=== PATIENT | male | born 1965 | race Caucasian/White ===

== ENCOUNTER 2018-12-11 07:32 | Emergency (ER) | payer BC, OTHER ==
[2018-12-11 08:19] LABS: ABS Eosinophils 0.1 10^3/ul (0-0.6); ABS Lymphocytes 0.8 10^3/ul (1.0-4.8); ABS Monocytes 0.4 10^3/ul (0-0.8); ABS Neutrophils 5.6 10^3/ul (1.5-7.7); Eosinophil % 1.1 %; Hematocrit 40 % (42-52); Hemoglobin 13.8 g/dL (14.0-18.0); Lymphocyte % 11.2 %; Mean Corpuscular HGB Conc 35 g/dL (31-36); Mean Corpuscular Hemoglobin 30 pg (27-31); Mean Corpuscular Volume 85 fL (80-94); Mean Platelet Volume 6.8 fL (7.4-10.4); Platelet Count 230 10^3/uL (150-450); Red Blood Count 4.67 10^6 /uL (4.18-5.48); Red Cell Distribution Width 14 % (10-15); White Blood Count 6.9 10^3/uL (3.5-10.8)
[2018-12-11] MEDS ORDERED: Morphine 4 MG/ML VIAL (1 ml) 4 MG/ML VIAL IV ONE (08:26)
[2018-12-11] MEDS ORDERED: NS 0.9% 1000 ML** 1,000 ML IV ONE (08:26)
[2018-12-11] MEDS ORDERED: Ondansetron INJ* 2 MG/ML VIAL IV ONE (08:26)
[2018-12-11] MEDS ORDERED: Iodixanol* (CONTRAST) 320 MG/ML 100 ML SDV IV ONE (08:28)
[2018-12-11 08:31] LABS: Albumin/Globulin Ratio 1.8 (1-3); C Reactive Protein 1.18 mg/L (<8.01); EGFR African American 94.2 (>60); EGFR Non-African American 77.9 (>60); Globulin 2.2 g/dL (2-4); Potassium 3.9 mmol/L (3.5-5.0); Total Bilirubin 0.4 mg/dL (0.2-1.0); Total Protein 6.2 g/dL (6.4-8.9)
--- NOTE | 2018-12-11 08:56 | ED ---
Abdominal Pain/Male - HPI Summary HPI Summary: This patient is a 53 year old M presenting to [facility] accompanied by with a chief complaint of worsening LLQ pain that radiates to groin and back since 0615 on 12/11/18. Pt has had similar episodes in the past that lasts 30-45 minutes. The patient rates the pain 9/10 in severity. Patient reports chills, nausea, normal urination, and last BM was in the afternoon of 12/10/18. Pt denies any fever, erythema of eyes, sore throat, CP, SOB, cough, vomiting, dysuria, hematuria, myalgia, edema, rash, dizziness, blood in stool. Pt has had no abdominal surgeries, kidney stones or kidney issues. Pt has a FHx of aneurism in father. - History of Current Complaint Chief Complaint: EDAbdPain Stated Complaint: ABD PAIN PER PT Time Seen by Provider: 12/11/18 08:01 Hx Obtained From: Patient Onset/Duration: Sudden Onset, Lasting Hours, Still Present Timing: Intermittent, Lasting Hours Severity Initially: Moderate Severity Currently: Severe Pain Intensity: 9 Pain Scale Used: 0-10 Numeric Location: Discrete At: LLQ Radiates: Yes Radiates to: Back, Other - groin Aggravating Factor(s): Nothing Alleviating Factor(s): Nothing Associated Signs And Symptoms: Positive: Negative - any fever, erythema of eyes , sore throat, CP, SOB, cough, vomiting, dysuria, hematuria, myalgia, edema, rash, dizziness, blood in stool, Nausea, Other - pos - chills, normal urination - Allergies/Home Medications Allergies/Adverse Reactions: Allergies Allergy/AdvReac Type Severity Reaction Status Date / Time amoxicillin Allergy Hives Verified 12/11/18 07:36 PMH/Surg Hx/FS Hx/Imm Hx Endocrine/Hematology History: Denies: Hx Diabetes Cardiovascular History: Denies: Hx Hypertension, Hx Pacemaker/ICD History: Denies: Hx Renal Disease Sensory History: Denies: Hx Hearing Aid Psychiatric History: Denies: Hx Panic Disorder - Surgical History Surgery Procedure, Year, and Place: LT KNEE MENISCUS REPAIR 2006. RT FOOT BONE SPUR Infectious Disease History: No Infectious Disease History: Denies: Traveled Outside the [place] in Last 30 Days - Family History Known Family History: Positive: Other - pos - aneurism - Social History Lives: With Family Alcohol Use: Rare Hx Substance Use: No Substance Use Type: Reports: None Hx Tobacco Use: No Smoking Status (MU): Never Smoked Tobacco Review of Systems Positive: Chills. Negative: Fever Negative: Erythema Negative: Sore Throat Negative: Chest Pain Negative: Shortness Of Breath, Cough Positive: Abdominal Pain, Nausea. Negative: Vomiting Positive: other - neg - blood in stool. Negative: dysuria, hematuria Negative: Myalgia, Edema Negative: Rash Neurological: Other - neg - dizziness All Other Systems Reviewed And Are Negative: Yes Physical Exam - Summary Physical Exam Summary: Constitutional: Well-developed, Well-nourished, Alert. (-) Distressed Skin: Warm, Dry HENT: Normocephalic; Atraumatic Eyes: Conjunctiva normal Neck: Musculoskeletal ROM normal neck. (-) JVD, (-) Stridor, (-) Tracheal deviation Cardio: Rhythm regular, rate normal, Heart sounds normal; Intact distal pulses; The pedal pulses are 2+ and symmetric. Radial pulses are 2+ and symmetric. (-) Murmur Pulmonary/Chest wall: Effort normal. (-) Respiratory distress, (-) Wheezes, (-) Rales Abd: Soft, mild LLQ tenderness, (-) Distension, (-) Guarding, (-) Rebound Musculoskeletal: (-) Edema Lymph: (-) Cervical adenopathy Neuro: Alert, Oriented x3 Psych: Mood and affect Normal : no testicular tenderness or swelling, testes were both in normal, no palpable inguinal hernias Triage Information Reviewed: Yes Vital Signs On Initial Exam: Initial Vitals Temp Pulse Resp BP Pulse Ox 97.7 F 63 18 150/88 98 12/11/18 07:34 12/11/18 07:34 12/11/18 07:34 12/11/18 07:34 12/11/18 07:34 Vital Signs Reviewed: Yes Diagnostics - Vital Signs Vital Signs Temp Pulse Resp BP Pulse Ox 12/11/18 08:00 53 13 100 12/11/18 07:58 0 F 0 0 0/0 0 12/11/18 07:44 52 15 139/96 100 12/11/18 07:34 97.7 F 63 18 150/88 98 - Laboratory Lab Results: Lab Results 12/11/18 Range/Units 08:08 WBC 6.9 (3.5-10.8) 10^3/uL RBC 4.67 (4.18-5.48) 10^6 /uL Hgb 13.8 L (14.0-18.0) g/dL Hct 40 L (42-52) % MCV 85 (80-94) fL MCH 30 (27-31) pg MCHC 35 (31-36) g/dL RDW 14 (10-15) % Plt Count 230 (150-450) 10^3/uL MPV 6.8 L (7.4-10.4) fL Neut % (Auto) 81.5 % Lymph % (Auto) 11.2 % [place] % (Auto) 5.6 % Eos % (Auto) 1.1 % Baso % (Auto) 0.6 % Absolute Neuts (auto) 5.6 (1.5-7.7) 10^3/ul Absolute Lymphs (auto) 0.8 L (1.0-4.8) 10^3/ul Absolute Monos (auto) 0.4 (0-0.8) 10^3/ul Absolute Eos (auto) 0.1 (0-0.6) 10^3/ul Absolute Basos (auto) 0.0 (0-0.2) 10^3/ul Absolute Nucleated RBC 0.0 10^3/ul Nucleated RBC % 0.0 Result Diagrams: 12/11/18 08:08 12/11/18 08:08 Lab Statement: Any lab studies that have been ordered have been reviewed, and results considered in the medical decision making process. - CT Chest/Abdomen/Pelvis CTA CT Interpretation Completed By: Radiologist Summary of CT Findings: Chest/Abdomen/Pelvis CTA reveals, per radiologist, IMPRESSION: 1. THERE IS A 4 MM CALCULUS AT THE LEFT URETEROVESICAL JUNCTION CAUSING MODERATE. HYDRONEPHROSIS. 2. NO EVIDENCE FOR AORTIC ANEURYSM OR DISSECTION. 3. 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 ED physician has reviewed this radiology report. Re-Evaluation - Re-Evaluation First Eval Re-Evaluation Time: 10:40 Comment: Pt was able to urinate, there were no visible stones. Abdominal Pain Male Course/Dx - Course Course Of Treatment: This patient is a 53 year old M presenting to [facility] accompanied by with a chief complaint of worsening LLQ pain that radiates to groin and back since 0615 on 12/11/18. Pt has a family history of aneurisms. Physical exam was normal except for mild LLQ tenderness. Chest/Abdomen/Pelvis CTA reveals, IMPRESSION: 1. THERE IS A 4 MM CALCULUS AT THE LEFT URETEROVESICAL JUNCTION CAUSING MODERATE. HYDRONEPHROSIS. 2. NO EVIDENCE FOR AORTIC ANEURYSM OR DISSECTION. 3. GRADE 1 ANTERIOR SPONDYLOLISTHESIS AT THE L5- S1 LEVEL AND BILATERAL SPONDYLOLYSIS AT THE L5 LEVEL. Blood work was obtained. Hgb is 13.8, Hct is 40, MPV is 6.8, BUN/Creatinine Ratio is 22.0, Total Protein is 6.2. UA obtained. Ur Specific [place] is 1.040, Urine Ketones is trace, Urine blood is 3+, Urine RBC is 3+. In the ED course the patient was given Toradol Inj 30 mg IV, Zofran Inj, 4mg IV, morphine 4 mg IV, and fluids. Pt is able to urinate, and there are no visible stones. Patient will be discharged with follow up from Dr. Child. The patient is agreeable with this plan. - Diagnoses Provider Diagnoses: Ureteral stone Discharge - Sign-Out/Discharge Documenting (check all that apply): Patient Departure - Discharge Patient Received Moderate/Deep Sedation with Procedure: No - Discharge Plan Condition: Stable Disposition: HOME Prescriptions: Tamsulosin CAP* [Flomax CAP*] 0.4 mg PO DAILY #4 cap Patient Education Materials: Ureteral Stones (ED) Referrals: Cristal Dickey MD [Primary Care Provider] - 3 Days Jamey Child MD [Medical Doctor] - 3 Days Additional Instructions: Follow up with Dr. Child within 2-3 days. Use ibuprofen as needed. RETURN TO THE EMERGENCY DEPARTMENT FOR CHANGING OR WORSENING SYMPTOMS - Attestation Statements Document Initiated by Scribe: Yes Documenting Scribe: Maryann Elizondo Provider For Whom Scribe is Documenting (Include Credential): Dr. Adarsh Canela MD Scribe Attestation: Maryann Modi, scribed for Dr. Adarsh Canela MD on 12/11/18 at 1301. Status of Scribe Document: Ready
[2018-12-11] MEDS ORDERED: Ketorolac INJ* 30 MG/ML 1 ML VIAL IV PUSH ONE (09:36)
[2018-12-11 10:23] LABS: Urine Appearance Clear; Urine Bacteria Absent (Absent); Urine Bilirubin Negative (Negative); Urine Blood 3+ (Negative); Urine Color Yellow; Urine Glucose Negative (Negative); Urine Ketones Trace (Negative); Urine Nitrite Negative (Negative); Urine Protein Negative (Negative); Urine Red Blood Cell 3+(>10/hpf) (Absent); Urine Urobilinogen Negative (Negative); Urine White Blood Cell Absent (Absent)
[2018-12-11 10:51] VITALS: BP 94/52
== END 2018-12-11 11:02 | disposition home or self-care (01) ==
LOC: ED 07:32
DX: N13.2 Hydronephrosis with renal and ureteral calculous obstruction (principal); M43.16 Spondylolisthesis, lumbar region; Z88.1 Allergy status to other antibiotic agents
CPT/HCPCS: 36415; 71275; 74174; 80053; 81003; 81015; 83605; 83690; 85025; 86140; 86850; 86900; 86901; 96361; 96374; 96375; 99283; J1885; J2270; J2405; Q9967